=== PATIENT | male | born 1960 | race Caucasian/White ===

== ENCOUNTER 2020-02-02 22:39 | Emergency (ER) | payer MEDICAID ==
[~2020-02-02] VITALS: Ht 182.9 cm; Wt 54.4 kg
--- NOTE | 2020-02-02 23:00 | NUR ---
BIBSELF C/O SUICIDAL IDEATION WITH PLAN TO JUMP IN FRONT OF TRAIN. DENIES HI/HALLUCINATIONS AT THIS TIME. PT AAOX4. CALM AND COOEPRATIVE. RESPIRATIONS EVEN AND UNLABORED. SKIN WARM AND INTACT. AMBULATORY WITH STEADY GAIT. NO ACUTE DISTRESS NOTED AT THIS TIME. SITTER AT BEDSIDE. BELONGINGS COLLECTED AND PLACED IN PATIENT LOCKER. PT PLACED IN GOWN. WILL CONTINUE TO MONITOR
[2020-02-02 23:13] LABS: BASOPHILS % (AUTO) 0.8 % (0.0-2.0); HEMATOCRIT 37 % (39-51); LYMPHOCYTES % (AUTO) 28.3 % (20.0-44.0); MEAN CORPUSCULAR HGB CONC 32 g/dl (31.0-36.0); MEAN CORPUSCULAR VOLUME 91 fL (80-96); MONOCYTES # (AUTO) 0.4 /CMM (0.1-1.30); MONOCYTES % (AUTO) 11.9 % (2.0-12.0); NEUTROPHILS # (AUTO) 1.8 /CMM (1.8-8.9); PLATELET COUNT (AUTO) 405 /CMM (150-450); RED BLOOD CELL COUNT(AUTO) 4.12 MIL/uL (4.5-6.0); WHITE BLOOD COUNT (AUTO) 3.4 K/uL (4.3-11.0)
[2020-02-02 23:21] LABS: APPEARANCE,URINE Cloudy (CLEAR); BILIRUBIN,URINE MODERATE (NEGATIVE); BLOOD, URINE Large Ery/uL (NEGATIVE); COLOR,URINE Brown (YELLOW); KETONES,URINE Trace (NEGATIVE); LEUKOCYTE ESTERASE ,URINE Negative (NEGATIVE); NITRITE, URINE Negative (NEGATIVE); PROTEIN,URINE >=300 mg/dl (NEGATIVE); UGLUCOSE Negative (NEGATIVE)
[2020-02-02 23:24] LABS: CALCIUM, SERUM 8.8 mg/dL (8.5-10.1); CARBON DIOXIDE 33 mmol/L (21-32); CHLORIDE 107 mmol/L (98-107); CREATININE 1.2 mg/dL (0.6-1.3); GLUCOSE 100 mg/dL (74-106); POTASSIUM 3.6 mmol/L (3.5-5.1); SODIUM SERUM 144 mmol/L (136-145); UREA NITROGEN, BLOOD 16 mg/dL (7-18)
[2020-02-02 23:29] LABS: ALANINE AMINOTRANSFERASE 16 U/L (12-78); ALBUMIN 3.6 g/dL (3.4-5.0); ALKALINE PHOSPHATASE 74 U/L (46-116); ASPARTATE AMINOTRANSFERASE 17 U/L (15-37); BILIRUBIN,DIRECT 0.1 mg/dL (0.0-0.2); BILIRUBIN,TOTAL 0.3 mg/dL (0.2-1.0); TOTAL PROTEIN, SERUM 6.9 g/dL (6.4-8.2)
[2020-02-02 23:31] LABS: BACTERIA,URINE Rare /HPF (None Seen); RBC,URINE TOO NUMEROUS TO COUN /HPF (0-2); SQUAMOUS EPITHELIAL CELL,UR Few /HPF (None Seen); WBC,URINE NONE SEEN /HPF (0-3)
[2020-02-02 23:32] LABS: ACETAMINOPHEN < 2 ug/ml (10-30); ALCOHOL, BLOOD < 3 mg/dL (0-0); SALICYLATE 0.3 mg/dL (2.8-20.0)
--- NOTE | 2020-02-03 02:40 | NUR ---
AGATHA, CALLED FROM [facility]. PT CAN GO TO [facility] [address] CHAN IS THE ACCEPTING MD. CALL FOR REPORT.
--- NOTE | 2020-02-03 03:10 | NUR ---
CALLED [facility] FOR TRANSPORTATION. CONFIRMATION #[id number]. WILL CALL BACK WITH ETA
--- NOTE | 2020-02-03 03:15 | NUR ---
[facility] ETA 5-5:30
--- NOTE | 2020-02-03 04:28 | NUR ---
REPORT GIVEN TO VIVI MALDONADO FROM [facility] FOR DENY
--- NOTE | 2020-02-03 05:45 | NUR ---
CALLED [facility], ETA 30 MINUTES
[2020-02-03 06:16] VITALS: BP 136/80
--- NOTE | 2020-02-03 06:17 | NUR ---
REPORT GIVEN TO [facility] FOR TRANSPORTATION DENY
== END 2020-02-03 06:19 | disposition short-term general hospital (02) ==
LOC: ER 22:40
DX: R45.851 Suicidal ideations (principal); F14.90 Cocaine use, unspecified, uncomplicated; I10 Essential (primary) hypertension; F20.9 Schizophrenia, unspecified
CPT/HCPCS: 36415; 80048; 80076; 80305; 80307; 80329; 81001; 85025; 99285; G0480; 81000-TC